=== PATIENT | male | born 1945 | race Caucasian/White ===

== ENCOUNTER 2021-11-03 08:48 | Emergency (ER) | payer MEDICARE, OTHER, SELFPAY ==
--- NOTE | 2021-11-03 09:02 | DI.RAD.S_ITS ---
PROCEDURE: XR WRIST RT MIN 3V INDICATIONS: fall TECHNIQUE: 4 views of the wrist were acquired. COMPARISON: None. FINDINGS: Bones: No definite acute fracture seen. No dislocations. Alignment is maintained. No suspicious bony lesions. 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 There also degenerative changes of the distal radiocarpal joint. Scaphoid view: Scaphoid appears intact. Scapholunate interval is maintained. Soft tissues: No suspicious soft tissue calcifications. Soft tissue swelling of the dorsal right wrist. IMPRESSION: Right wrist without acute osseous abnormalities. Dorsal right wrist soft tissue swelling. No definite acute fracture seen. No dislocation. If there is persistent clinical concern for occult fracture given adequate mechanism of injury, consider repeat imaging in 10-14 days. 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 Dictated by: Blaise Eisenberg M.D. on 11/03/2021 at 9:21 Approved by: Blaise Eisenberg M.D. on 11/03/2021 at 9:26
[2021-11-03 09:03] VITALS: BP 144/61; PULSE 75; RESP 18; TEMP 36.7; O2SAT 99
--- NOTE | 2021-11-03 09:10 | ED.UPPEXIN ---
HPI - Extremity Injury (Upper) General Chief Complaint: Extremity Injury, Upper Stated Complaint: Thinks broken rt wrist Time Seen by Provider: 11/03/21 09:04 History of Present Illness HPI narrative: Patient here with . is driving. Complains of right wrist injury at 4:00 a.m. this morning. Patient got up to use the bathroom, had diarrhea, got up became dizzy, did not pass out but fell to the floor and broke his fall with outstretched right hand and wrist. Denies any other injuries. No loss of consciousness. Did have vomiting later in the morning. Patient thought maybe food poisoning but no other in family have symptoms of vomiting or diarrhea. No recent illness fever chills cough cold or congestion. 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 See [facility] On[facility] Dr. Billingsley. Again, dizziness is not new, he has to be careful getting up because he becomes dizzy. No relief of pain with taking Aleve this morning Related Data Allergies Allergy/AdvReac Type Severity Reaction Status Date / Time Penicillins Allergy Unknown Verified 11/03/21 09:32 Review of Systems Review of Systems Narrative: GENERAL: Denies chills, fatigue, malaise, fever, sweats. HEENT: Denies sinus pain, ear pain, sore throat RESPIRATORY: Denies dyspnea, cough CARDIOVASCULAR: Denies chest pain, palpitations GASTROINTESTINAL: Denies nausea, vomiting, abdominal pain : Denies dysuria, frequency, hematuria MUSCULOSKELETAL: Positive muscle or bony pain SKIN: Denies rash, skin lesions NEUROLOGIC: Denies weakness, numbness, positive dizziness ROS Unobtainable: All systems reviewed & are unremarkable except as noted in HPI and below Patient History Social History Smoking Status: Former smoker Exam Narrative Exam Narrative: GENERAL: in no distress, not toxic not dyspneic HEAD: Normocephalic. EYES: Pupils equal round No scleral icterus. EXTREMITIES: No gross deformities. Examination right upper extremity. Nontender elbow. No gross deformity of wrist. There is bruising at the junction of the wrist and hand. Mild tenderness to the 5th metacarpal. Limited range of motion at the wrist with flexion-extension and supination pronation or any movement at the wrist. There is edema diffusely at the wrist as well. Skin is intact. Light touch intact to fingers and thumb. Nontender fingers and thumb. NEURO: AOx4. SKIN: Warm and dry PSYCH: Not anxious, is cooperative Initial Vital Signs Initial Vital Signs: Vital Signs Temperature 98.1 F 11/03/21 09:03 Pulse Rate 75 11/03/21 09:03 Respiratory Rate 18 11/03/21 09:03 Blood Pressure 144/61 H 11/03/21 09:03 Pulse Oximetry 99 11/03/21 09:03 Oxygen Delivery Method 11/03/21 09:03 Procedures Orthopedic Splinting/Casting Injury #1: Time of procedure: 10:38 Side: right Upper Extremity Injury Location: wrist Upper Extremity Immobilizer: volar splint Post splinting neuro exam: intact Post splinting vascular exam: intact Placed by: Nursing (surgical tech) Course Course Course Narrative: No new issues during course of stay Orders Ordered: Discontinued Medications Hydrocodone Bitart/Acetaminophen (Hydrocodone/Acet 5/325 Tablet) 2 tab PO NOW ONE Stop: 11/03/21 09:10 Last Admin: 11/03/21 09:33 Dose: 2 tab Documented By: CLYDE Ondansetron HCl (Ondansetron 4 Mg Odt) 4 mg SL NOW ONE Stop: 11/03/21 09:10 Last Admin: 11/03/21 09:32 Dose: 4 mg Documented By: CLYDE Reevaluation(s) Reevaluation #1: Reviewed results with patient. Patient tolerated splinting very well. Treating sprain as possible clinical fracture wrist. Volar splint placed. Pain is controlled. is driving. Orthopedic referral given. Patient agrees with treatment plan and desires discharge home Time: 10:39 Vital Signs Vital signs: Vital Signs - 8 hr 11/03/21 09:03 11/03/21 10:20 Temperature 98.1 F Pulse Rate 75 70 Respiratory Rate 18 18 Blood Pressure 144/61 H 105/53 L Pulse Oximetry 99 100 Oxygen Delivery Method Room Air Room Air MDM - Extremity Injury (Upper) Differential Diagnosis Differential diagnosis: Likely sprain and strain of wrist, fracture of wrist and other (Hand contusion/fracture) Imaging Data Extremity x-ray #1: Radiologist's Impression: [address] [address] XRay Report Signed Patient: Wilfredo Valentine MR#: [id number] : 1945 Acct:[id number] Age/Sex: 76 / M Date of Service: 11/03/21 Loc: ED Accession Number: [id number] ?? Procedure: XR wrist RT min 3V Ordering Provider: Kush Darling MD PROCEDURE:? XR WRIST RT MIN 3V ? INDICATIONS: fall ? TECHNIQUE:? 4 views of the wrist were acquired.? ? COMPARISON:? None. ? FINDINGS:? ? Bones:? No definite acute fracture seen.? No dislocations.? Alignment is maintained.? No suspicious bony lesions.? Severe degenerative changes of the 1st carpometacarpal joint.? There also degenerative changes of the distal radiocarpal joint. ? Scaphoid view:? Scaphoid appears intact. Scapholunate interval is maintained. ? Soft tissues:? No suspicious soft tissue calcifications.? Soft tissue swelling of the dorsal right wrist. ? IMPRESSION:? Right wrist without acute osseous abnormalities.? Dorsal right wrist soft tissue swelling.? No definite acute fracture seen.? No dislocation. If there is persistent clinical concern for occult fracture given adequate mechanism of injury, consider repeat imaging in 10-14 days. ? 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 ? ? ? Dictated by: Blaise Eisenberg M.D. on 11/03/2021 at 9:21 ? ? Approved by: Blaise Eisenberg M.D. on 11/03/2021 at 9:26 ? MDM Narrative Medical decision making narrative: Appropriate for discharge home. Exam and imaging otherwise reassuring. Treating clinically for possible non radiographic fracture. Splint applied. Pain control. Has a auto parts delivery driver. Patient agrees with NSAIDs for pain control at home. Referral for Orthopedics given. Return precautions provided. They desire discharge home. Discharge Plan Departure Patient Disposition: Home Clinical Impression: Right wrist sprain Instructions: DI for Wrist Sprain Activity Restrictions/Additional Instructions: Use splint for comfort. Call Dr. Mckeon office today for office recheck next week. If not improving 7 or 10 days may need repeat x-ray of the wrist or MRI of the wrist. At this time splint is use to treat for clinical fracture of the wrist. May continue ibuprofen or Tylenol for pain. Return if worse if any questions or concerns. No driving or operating machinery today or while in splint/until evaluated by orthopedics Referrals: Vonda Mckeon MD [Physician] - Pam Alegre MD [Primary Care Provider] - Visit Report Forms: Patient Portal/API
[2021-11-03] MEDS: ONDANSETRON 4 MG ODT SL (09:32)
[2021-11-03] MEDS: HYDROCODONE/ACET 5/325 TABLET 2 TAB PO (09:33)
[2021-11-03 10:20] VITALS: BP 105/53; PULSE 70; RESP 18; O2SAT 100
== END 2021-11-03 10:44 | disposition home or self-care (01) ==
PROVIDERS: Emergency Provider Emergency Medicine; PCP Internal Medicine
DX: S63.501A Unspecified sprain of right wrist, initial encounter (principal); W19.XXXA Unspecified fall, initial encounter
CPT/HCPCS: 29125; 73110; 99283; 99284

== ENCOUNTER 2022-06-25 08:41 | Emergency (ER) | payer MEDICARE, OTHER, SELFPAY ==
[2022-06-25] VITALS (8 sets, daily range): BP systolic 131–142; BP diastolic 64–84; PULSE 59–71; RESP 16–17; TEMP 36; O2SAT 94–98; BMI 24.4
--- NOTE | 2022-06-25 08:53 | DI.CT.S_ITS ---
PROCEDURE: CT CHEST ABD PEL W CON INDICATIONS: fall off ladder with abd pain and mid back pain TECHNIQUE: After the administration of oral and intravenous contrast, axial sections acquired from the supraclavicular neck to the pubic symphysis. Coronal and sagittal reformats were performed. For radiation dose reduction, the following was used: automated exposure control, adjustment of mA and/or kV according to patient size. COMPARISON: [facility], CT, CT CHEST ABDOMEN PELVIS WITH CONTRAST, 12/07/2020, 16:00. Outside Film, CT, CT CHEST ABDOMEN PELVIS WITH CONTRAST, 04/27/2021, 10:38. Outside Film, NM, PET NECK TO MID THIGH, 04/27/2021, 10:17. Outside Film, CT, CT SOFT TISSUE NECK WITH CONTRAST, 10/12/2021, 15:32. Outside Film, CT, CT CHEST ABDOMEN PELVIS WITH CONTRAST, 10/12/2021, 15:15. FINDINGS: Image quality: Excellent. CHEST: Lower Neck: No enlarged lymph nodes. Thyroid: Within normal limits. Axillae: No enlarged lymph nodes. Chest Wall: Unremarkable. There is a Port-A-Cath in the right anterior chest. Lungs and Airways: Bibasilar atelectasis. No pulmonary contusion. No pneumothorax. There is a 3 mm intrafissure nodule in the left major fissure, unchanged. Mild emphysema. Pleura: No pneumothorax or pleural effusions. Heart: Heart size is normal. No pericardial effusion. There is an aortic valve prosthesis. Mild coronary artery calcification. Thoracic Vessels: The aorta and pulmonary arteries demonstrate normal size. Mediastinum and Sahra: No enlarged lymph nodes. Esophagus: No wall thickening. No hiatal hernia. ABDOMEN: Liver: Normal size. Mild hepatic steatosis. Node is made of several hepatic cysts. Gallbladder: Unremarkable. Biliary ducts: Unremarkable. Pancreas: Unremarkable. Spleen: Unremarkable. There is a 1.2 cm splenule. Adrenal Glands: Unremarkable. Kidneys and Ureters: Unremarkable. Stomach and Bowel: Stomach, small bowel loops, and colon are unremarkable. Peritoneum: No abnormal intraperitoneal fluid. No free air. Ventral Wall: There is small fat containing umbilical hernia. Abdominal Nodes: No retroperitoneal or mesenteric adenopathy by size criteria. Vessels: Aorta and inferior vena cava are normal in size. PELVIS: Pelvic Organs: Prostate is enlarged. Bladder: Bladder wall is mildly thickened. Pelvic Nodes: No enlarged lymph nodes. Miscellaneous: No inguinal hernias are seen. Bones: There are acute nondisplaced right 9th, 10th and 11th rib fractures. Suspect old left 11th rib fracture and old inferior sternal fracture, which was present on the comparison CT dated 10/12/2021. There are degenerative changes in thoracic and lumbar spine. IMPRESSION: 1. Acute nondisplaced right 9th, 10th and 11th rib fractures. 2. No traumatic injuries seen on CT in abdomen or pelvis. 3. Degenerative changes in thoracic and lumbar spine. No acute vertebral fractures. Dictated by: Whit Rosenbaum M.D. on 06/25/2022 at 10:47 Approved by: Whit Rosenbaum M.D. on 06/25/2022 at 11:09
--- NOTE | 2022-06-25 08:53 | DI.RAD.S_ITS ---
PROCEDURE: XR FINGER RT MIN 2V INDICATIONS: R thumb injury after fall TECHNIQUE: AP hand, 2 views of the 1st finger(s) acquired. COMPARISON: None. FINDINGS: Bones: There is fracture of the 1st distal phalangeal tuft with mild displacement. No suspicious bony lesions. Soft tissues: A small focus of soft tissue calcification, radiopaque foreign body or displaced fracture fragment is seen IMPRESSION: 1. 1st distal phalangeal tuft fracture. Dictated by: Whit Rosenbaum M.D. on 06/25/2022 at 9:42 Approved by: Whit Rosenbaum M.D. on 06/25/2022 at 9:44
--- NOTE | 2022-06-25 08:53 | ED.GENADULT ---
HPI - General Adult General Chief complaint: Trauma Stated complaint: T-1 fell 8 feet of ladder landed on concreate RT Time Seen by Provider: 06/25/22 08:43 Source: patient and family () Mode of arrival: Ambulatory Limitations: no limitations History of Present Illness HPI narrative: Patient is a 77-year-old male. Has a history of lymphoma. His current being followed by Oncology. Not on blood thinners. Yesterday was working on a ladder. He stated that he fell off the ladder. Approximately 8 ft. He did not hit his head. There was no loss of consciousness. He has no leg or hip pain. Has been ambulatory. Is here because he is having some mid back discomfort and also abdominal discomfort. He also injured his right thumb. No chest pain. No shortness of breath. Related Data Home Medications Medication Instructions Recorded Confirmed aspirin 81 mg tablet,delayed 81 mg PO DAILY 06/25/22 06/25/22 release escitalopram oxalate 20 mg tablet 20 mg PO DAILY 06/25/22 06/25/22 fludrocortisone 0.1 mg tablet 0.1 mg PO DAILY 06/25/22 06/25/22 tamsulosin 0.4 mg capsule (Flomax) 0.4 mg PO DAILY 06/25/22 06/25/22 valacyclovir 500 mg tablet 500 mg PO DAILY 06/25/22 06/25/22 Previous Rx's Medication Instructions Recorded hydrocodone 5 mg-acetaminophen 325 1 tab PO Q4-6H PRN pain #10 tabs 06/25/22 mg tablet Allergies Allergy/AdvReac Type Severity Reaction Status Date / Time Penicillins Allergy Unknown Verified 06/25/22 09:10 Review of Systems Review of Systems ROS Unobtainable: All systems reviewed & are unremarkable except as noted in HPI and below Patient History Social History Smoking Status: Former smoker Smoking Status: Former smoker tobacco type: pipe alcohol intake frequency: 0-2 drinks per day Substance Use Type: does not use Exam Initial Vital Signs Initial Vital Signs: Vital Signs Pulse Rate 64 06/25/22 08:49 Blood Pressure 141/65 H 06/25/22 08:49 Pulse Oximetry 98 06/25/22 08:49 Const General: cooperative, comfortable and No ill appearing HENMT Head: normal to inspection and normocephalic Face and sinus: normal facial exam Chest Chest: No crepitus and No tenderness Resp Effort & Inspection: normal respiratory effort Auscultation: clear to auscultation bilaterally Cardio Rate: regular rate Rhythm: regular rhythm GI Inspection: normal to inspection and non-distended Palpation: tender (Generalized tenderness) Back/Spine/Pelvis Cervical Spine: No cervical spasm Skin General: no rashes or lesions noted Neuro General: patient alert, patient awake, patient oriented x3 and moves all extremities Speech: speech normal Extrem General: normal to inspection and capillary refill normal Psych Appearance: grossly normal Scores GCS Chandu coma scale eye opening: Spontaneous [place] coma scale verbal response: Orientated Nexus Score for C-Spine Focal Neurologic deficit present: No Midline spinal tenderness present: No Altered level of conciousness present: No Intoxication present: No Distracting Injury Present: No Nexus Criteria for C-spine: 0 Course Orders Ordered: ED Orders 06/25/22 08:53 CT chest abd pel w con Stat XR finger RT min 2V Stat 06/25/22 09:00 Complete Blood Count AUTO DIFF Stat Comprehensive Metabolic Panel Stat Lipase Stat Discontinued Medications Hydrocodone Bitart/Acetaminophen (Hydrocodone/Acet 5/325 Tablet) 1 tab PO NOW ONE Stop: 06/25/22 08:56 Last Admin: 06/25/22 09:31 Dose: 1 tab Documented By: KALPANA Vital Signs Vital signs: Vital Signs - 8 hr 06/25/22 08:53 06/25/22 08:49 06/25/22 08:49 Temperature 96.8 F L Pulse Rate 67 64 Respiratory Rate 17 Blood Pressure 141/65 H 141/65 H Pulse Oximetry 98 98 Oxygen Delivery Method Room Air 06/25/22 09:00 06/25/22 09:00 06/25/22 09:30 Temperature Pulse Rate 63 Respiratory Rate 16 Blood Pressure 131/84 142/64 H Pulse Oximetry 98 Oxygen Delivery Method Room Air 06/25/22 09:30 06/25/22 10:09 06/25/22 10:30 Temperature Pulse Rate 63 71 63 Respiratory Rate Blood Pressure Pulse Oximetry 94 94 Oxygen Delivery Method 06/25/22 11:00 Temperature Pulse Rate 59 L Respiratory Rate Blood Pressure Pulse Oximetry 94 Oxygen Delivery Method Medical Decision Making Lab Data Lab results reviewed: Yes I reviewed the patient's lab results. 06/25/22 09:00 06/25/22 09:00 Labs: Lab Results 06/25/22 06/25/22 06/25/22 Range/Units 09:00 09:00 09:00 WBC 3.2 L (4.5-11.0) X10^3/uL RBC 3.20 L (4.5-5.9) X10^6/uL Hgb 10.6 L (13.5-17.5) g/dL Hct 30.8 L (41-53) % MCV 96.4 (80-100) fL MCH 33.1 (26-34) PG MCHC 34.4 (30-36) % RDW 14.8 (11.6-14.8) % Plt Count 88 L (150-400) X10^3/uL Neut % (Auto) 76.1 H (50-75) % Lymph % (Auto) 8.0 L (25-40) % [place] % (Auto) 13.9 (3-14) % Eos % (Auto) 1.8 L (2-4) % Baso % (Auto) 0.2 (0-2) % Neut # (Auto) 2400 (3025-3377) /uL Lymph # (Auto) 300 L (9680-2273) /uL [place] # (Auto) 400 (0-900) /uL Eos # (Auto) 100 (0-450) /uL Baso # (Auto) 0 (0-100) /uL Sodium 136 L (137-145) mmol/L Potassium 4.5 (3.4-5.1) mmol/L Chloride 102 (98-107) mmol/L Carbon Dioxide 29 (22-32) mmol/L BUN 19 (9-20) mg/dL Creatinine 1.12 (0.66-1.25) mg/dL Estimated GFR > 60 (>60) mL/min BUN/Creatinine Ratio 17.0 (6-22) Glucose 105 (80-110) mg/dL Calcium 8.9 (8.4-10.2) mg/dL Total Bilirubin 0.5 (0.2-1.3) mg/dL AST 25 (17-59) IU/L ALT 18 (<50) IU/L Alkaline Phosphatase 73 (38-126) U/L Total Protein 7.0 (6.3-8.2) g/dL Albumin 4.1 (3.5-5.0) g/dL Globulin 2.9 (1.7-4.1) g/dL Albumin/Globulin Ratio 1.4 (1.0-2.8) Lipase 59 (23-300) U/L Imaging Data Extremity x-ray #1: Radiologist's Impression: PROCEDURE:? XR FINGER RT MIN 2V ? INDICATIONS:? R thumb injury after fall ? TECHNIQUE:? AP hand, 2 views of the 1st finger(s) acquired.? ? COMPARISON:? None. ? FINDINGS:? ? Bones:? There is fracture of the 1st distal phalangeal tuft with mild displacement.? No suspicious bony lesions.? ? Soft tissues:? A small focus of soft tissue calcification, radiopaque foreign body or displaced fracture fragment is seen ? IMPRESSION:? ? 1. 1st distal phalangeal tuft fracture.? CT chest abd and pelvis: Radiologist's Impression: PROCEDURE:? CT CHEST ABD PEL W CON ? INDICATIONS:? fall off ladder with abd pain and mid back pain ? TECHNIQUE:? After the administration of oral and intravenous contrast, axial sections acquired from the supraclavicular neck to the pubic symphysis.? Coronal and sagittal reformats were performed.? For radiation dose reduction, the following was used:? automated exposure control, adjustment of mA and/or kV according to patient size.? ? COMPARISON: ? [facility], CT, CT CHEST ABDOMEN PELVIS WITH CONTRAST, 12/07/2020, 16:00.? Outside Film, CT, CT CHEST ABDOMEN PELVIS WITH CONTRAST, 04/27/2021, 10:38.? Outside Film, NM, PET NECK TO MID THIGH, 04/27/2021, 10:17.? Outside Film, CT, CT SOFT TISSUE NECK WITH CONTRAST, 10/12/2021, 15:32.? Outside Film, CT, CT CHEST ABDOMEN PELVIS WITH CONTRAST, 10/12/2021, 15:15. ? FINDINGS:? Image quality:? Excellent.? ? CHEST: Lower Neck: No enlarged lymph nodes.? Thyroid: Within normal limits. Axillae: No enlarged lymph nodes. Chest Wall:? Unremarkable.? There is a Port-A-Cath in the right anterior chest. ? Lungs and Airways:? Bibasilar atelectasis.? No pulmonary contusion.? No pneumothorax.? There is a 3 mm intrafissure nodule in the left major fissure, unchanged.? Mild emphysema. Pleura: No pneumothorax or pleural effusions.? ? Heart: Heart size is normal.? No pericardial effusion.? There is an aortic valve prosthesis.? Mild coronary artery calcification. Thoracic Vessels: The aorta and pulmonary arteries demonstrate normal size.? Mediastinum and Sahra: No enlarged lymph nodes.? Esophagus: No wall thickening. No hiatal hernia. ? ? ABDOMEN: Liver:? Normal size.? Mild hepatic steatosis.? Node is made of several hepatic cysts.? ? Gallbladder:? Unremarkable.? ? Biliary ducts:? Unremarkable.? ? Pancreas:? Unremarkable.? ? Spleen:? Unremarkable.? There is a 1.2 cm splenule. ? Adrenal Glands:? Unremarkable.? ? Kidneys and Ureters:? Unremarkable.? ? ? Stomach and Bowel:? Stomach, small bowel loops, and colon are unremarkable.? Peritoneum:? No abnormal intraperitoneal fluid.? No free air.? ? Ventral Wall: ? There is small fat containing umbilical hernia.? Abdominal Nodes:? No retroperitoneal or mesenteric adenopathy by size criteria.? Vessels:? Aorta and inferior vena cava are normal in size.? ? PELVIS: Pelvic Organs:? Prostate is enlarged.? ? Bladder:? Bladder wall is mildly thickened.? ? Pelvic Nodes: No enlarged lymph nodes.? Miscellaneous: No inguinal hernias are seen. ? ? ? Bones:? There are acute nondisplaced right 9th, 10th and 11th rib fractures.? Suspect old left 11th rib fracture and old inferior sternal fracture, which was present on the comparison CT dated 10/12/2021.? ? There are degenerative changes in thoracic and lumbar spine. ? IMPRESSION:? ? 1.? Acute nondisplaced right 9th, 10th and 11th rib fractures. ? 2.? No traumatic injuries seen on CT in abdomen or pelvis. ? 3. Degenerative changes in thoracic and lumbar spine.? No acute vertebral fractures. MDM Narrative Medical decision making narrative: Patient is alert oriented x3. Cervical spine is cleared by nexus criteria. He does have a tuft fracture on his right thumb with a subungual hematoma although it is only minimal tender to palpation. We will hold on any splinting for now. We will hold on any trephination for now. Patient does have multiple rib fractures on the right. He is in no respiratory distress. Does have some bruising on his back. No other injuries noted on the CT scan. I did discuss this with him and his . We did discuss the importance of him taking deep breaths and pain control. Discussed specific return precautions. They expressed understanding and agreement plan. Discharge Plan Departure Patient Disposition: Home Clinical Impression: Finger fracture, right, Multiple rib fractures, Subungual hematoma of finger, Contusion of skin Instructions: DI for Rib Fracture Activity Restrictions/Additional Instructions: It is important that you occasionally take the deep breaths like we discussed. If you start to have fevers or problems breathing please return to the emergency department. Use the pain medication as needed. I suspect that you are going to be sore for the next couple days but things should start to improve. Continue to take all of your medications as directed. Prescriptions: New hydrocodone-acetaminophen 5-325 mg tablet 1 tab PO Q4-6H PRN (Reason: pain) Qty: 10 0RF No Action valacyclovir 500 mg tablet 500 mg PO DAILY Patient Comments: TAKE ONE TABLET BY MOUTH TWICE DAILY fludrocortisone 0.1 mg tablet 0.1 mg PO DAILY aspirin [Aspir-81] 81 mg Tablet,Delayed Release (Dr/Ec) 81 mg PO DAILY tamsulosin [Flomax] 0.4 mg Capsule 0.4 mg PO DAILY escitalopram oxalate 20 mg tablet 20 mg PO DAILY Referrals: Pam Alegre MD [Primary Care Provider] - Stand Alone Forms: Patient Portal/API
[2022-06-25 09:28] LABS: Add Manual Diff / Slide Review NO; Basophils Absolute Auto 0 /uL (0-100); Basophils Percent Auto 0.2 % (0-2); Eosinophils Absolute Auto 100 /uL (0-450); Eosinophils Percent Auto 1.8 % (2-4); Hematocrit 30.8 % (41-53); Hemoglobin 10.6 g/dL (13.5-17.5); Lymphocytes Absolute Auto 300 /uL (1100-4500); Mean Corpuscular HGB Conc 34.4 % (30-36); Mean Corpuscular Hemoglobin 33.1 PG (26-34); Mean Corpuscular Volume 96.4 fL (80-100); Monocytes Absolute Auto 400 /uL (0-900); Monocytes Percent Auto 13.9 % (3-14); Neutrophils Absolute Auto 2400 /uL (1500-7000); Neutrophils Percent Auto 76.1 % (50-75); Platelet Count 88 X10^3/uL (150-400); Red Cell Distribution Width 14.8 % (11.6-14.8); White Blood Cell Count 3.2 X10^3/uL (4.5-11.0)
[2022-06-25] MEDS: HYDROCODONE/ACET 5/325 TABLET 1 TAB PO (09:31)
[2022-06-25 09:43] LABS: Alanine Aminotransferase 18 IU/L (<50); Albumin 4.1 g/dL (3.5-5.0); Albumin Globulin Ratio 1.4 (1.0-2.8); Alkaline Phosphatase 73 U/L (38-126); Aspartate Aminotransferase 25 IU/L (17-59); Bilirubin Total 0.5 mg/dL (0.2-1.3); Blood Urea Nitrogen 19 mg/dL (9-20); Calcium 8.9 mg/dL (8.4-10.2); Carbon Dioxide 29 mmol/L (22-32); Chloride 102 mmol/L (98-107); Estimated Glomerular Filt Rate > 60 mL/min (>60); Globulin 2.9 g/dL (1.7-4.1); Glucose 105 mg/dL (80-110); HEMOLYSIS < 15 (0-50); Lipase 59 U/L (23-300); Potassium 4.5 mmol/L (3.4-5.1); Sodium 136 mmol/L (137-145)
== END 2022-06-25 11:52 | disposition home or self-care (01) ==
PROVIDERS: Emergency Provider Emergency Medicine; PCP Internal Medicine
DX: S62.501A Fracture of unspecified phalanx of right thumb, initial encounter for closed fracture (principal); S22.41XA Multiple fractures of ribs, right side, initial encounter for closed fracture; R10.9 Unspecified abdominal pain; W11.XXXA Fall on and from ladder, initial encounter
CPT/HCPCS: 36415; 71260; 73140; 74177; 80053; 83690; 85025; 99284; 99285; Q9967

== ENCOUNTER → 2024-07-07 09:39 | Outpatient (CLI) | payer MEDICARE, OTHER, SELFPAY ==
[2024-07-07 10:57] LABS: Hematocrit 31.3 % (41-53); Hemoglobin 10.8 g/dL (13.5-17.5); Mean Corpuscular HGB Conc 34.4 % (30-36); Mean Corpuscular Hemoglobin 32.4 PG (26-34); Mean Corpuscular Volume 94.1 fL (80-100); Platelet Count 137 X10^3/uL (150-400); Red Blood Cell Count 3.33 X10^6/uL (4.5-5.9); White Blood Cell Count 3.6 X10^3/uL (4.5-11.0)
[2024-07-07 11:02] LABS: Alanine Aminotransferase 17 IU/L (<50); Albumin 4.3 g/dL (3.5-5.0); Albumin Globulin Ratio 1.7 (1.0-2.8); Alkaline Phosphatase 58 U/L (38-126); Aspartate Aminotransferase 23 IU/L (17-59); BUN Creatinine Ratio 24.3 (6-22); Bilirubin Total 0.4 mg/dL (0.2-1.3); Blood Urea Nitrogen 28 mg/dL (9-20); Calcium 8.9 mg/dL (8.4-10.2); Carbon Dioxide 28 mmol/L (22-32); Chloride 103 mmol/L (98-107); Cholesterol 205 mg/dL (140-199); Estimated Glomerular Filt Rate > 60 mL/min (>60); Globulin 2.6 g/dL (1.7-4.1); Glucose 89 mg/dL (70-99); HDL Cholesterol 62 mg/dL (40-60); HEMOLYSIS < 15 (0-50); LDL Cholesterol Calculated 108 mg/dL (<100); Potassium 4.6 mmol/L (3.4-5.1); Sodium 138 mmol/L (137-145); Total Protein 6.9 g/dL (6.3-8.2); Triglycerides 173 mg/dL (35-150)
[2024-07-07 11:34] LABS: Prostate Specific Antigen 2.15 ng/mL (0.10-4.00)
[2024-07-07 11:38] LABS: TSH w/ Reflex to FT4 0.13 uIU/mL (0.47-4.68)
[2024-07-07 11:52] LABS: Vitamin B12 Reflex MMA if <400 450 pg/mL (239-931)
[2024-07-07 12:24] LABS: Free T4, Direct Thyroxine 0.95 ng/dL (0.78-2.19)
== END ==
PROVIDERS: PCP Internal Medicine; Referring Provider Internal Medicine; Visit Provider Urology
DX: N40.1 Benign prostatic hyperplasia with lower urinary tract symptoms (principal); C85.90 Non-Hodgkin lymphoma, unspecified, unspecified site; E78.2 Mixed hyperlipidemia; Z12.5 Encounter for screening for malignant neoplasm of prostate; N13.8 Other obstructive and reflux uropathy; E53.8 Deficiency of other specified B group vitamins
CPT/HCPCS: 36415; 51798; 80053; 80061; 81002; 82607; 84153; 84439; 84443; 85027; 99213

== ENCOUNTER → 2024-12-30 10:20 | Outpatient (CLI) | payer MEDICARE, OTHER, SELFPAY ==
--- NOTE | 2024-12-30 10:21 | DI.RAD.S_ITS ---
PROCEDURE: XR SHOULDER RT MIN 2V
--- NOTE | 2024-12-30 10:21 | DI.RAD.S_ITS ---
PROCEDURE: XR SHOULDER LT MIN 2V
== END ==
PROVIDERS: PCP Internal Medicine; Referring Provider Internal Medicine; Visit Provider Internal Medicine
DX: M19.011 Primary osteoarthritis, right shoulder (principal); M19.012 Primary osteoarthritis, left shoulder
CPT/HCPCS: 73030